=== PATIENT | male | born 1980 | race Caucasian/White ===

== ENCOUNTER 2016-09-18 13:07 | Emergency (ER) | payer OTHER ==
[~2016-09-18] VITALS: Ht 185.4 cm; Wt 95.2 kg
[~2016-09-18 13:07] MED LIST: BACO TOP; HIBICLENS118 ML TOP; SERO100 PO; SEROQUEL100 MG PO; SEROQUEL50 M1 PO; SIMVASTATIN10 M1 PO
[2016-09-18 14:25] VITALS: BP 135/74
== END 2016-09-18 14:25 | disposition home or self-care (01) ==
LOC: ED 13:07
DX: B34.9 Viral infection, unspecified (principal)
CPT/HCPCS: J1885; J7613; J7644

== ENCOUNTER 2016-09-25 15:45 | Emergency (ER) | payer OTHER ==
[2016-09-25 16:35] VITALS: BP 150/87
[2016-09-25 17:17] LABS: BASOPHIL % 0.5 % (0-2); PLATELET COUNT 275 x10^3mcL (130-400); RED CELL DISTRIBUTION WIDTH 13.6 % (11.5-14.5)
[2016-09-25 17:32] LABS: CALCIUM 9.2 mg/dL (8.5-10.1); CARBON DIOXIDE 24.1 mmol/L (21-32); CHLORIDE SERUM 98 mmol/L (98-107); CREATININE SERUM 0.9 mg/dL (0.7-1.3); GFR1 > 60 mL/min; GLUCOSE SERUM 81 mg/dL (74-106); POTASSIUM SERUM 3.4 mmol/L (3.5-5.1); SODIUM SERUM 136 mmol/L (136-145)
[2016-09-25 17:35] LABS: ALBUMIN 4.1 g/dL (3.4-5.0); ALKALINE PHOSPHATASE 96 U/L (46-116); ALT/SGPT 24 U/L (16-63); AST/SGOT 19 U/L (15-37); BILIRUBIN TOTAL 1.1 mg/dL (0.20-1.00); TOTAL PROTEIN, SERUM 7.9 g/dL (6.4-8.2)
== END 2016-09-25 18:10 | disposition home or self-care (01) ==
LOC: ED 15:45
PROVIDERS: Emergency Medicine
DX: F15.10 Other stimulant abuse, uncomplicated (principal)

== ENCOUNTER 2016-10-13 19:45 | Emergency (ER) | payer OTHER ==
[~2016-10-13] VITALS: Ht 185.4 cm; Wt 97.1 kg
[2016-10-13 21:21] VITALS: BP 135/75
== END 2016-10-13 21:21 | disposition home or self-care (01) ==
LOC: ED 19:45
DX: M54.5 Low back pain (principal); F15.10 Other stimulant abuse, uncomplicated

== ENCOUNTER 2016-11-10 11:52 | Emergency (ER) | payer OTHER ==
[2016-11-10 12:25] VITALS: BP 120/81
== END 2016-11-10 14:10 | disposition home or self-care (01) ==
LOC: ED 11:52
DX: J20.9 Acute bronchitis, unspecified (principal)

== ENCOUNTER 2017-11-11 07:17 | Emergency (ER) | payer OTHER ==
[~2017-11-11] VITALS: Ht 185.4 cm; Wt 88.0 kg
[2017-11-11 07:23] VITALS: BP 130/81; Ht 185.4 cm; Wt 88.0 kg
== END 2017-11-11 08:59 | disposition home or self-care (01) ==
LOC: ED 07:17
DX: S63.501A Unspecified sprain of right wrist, initial encounter (principal); X58.XXXA Exposure to other specified factors, initial encounter; Y93.89 Activity, other specified; Y92.89 Other specified places as the place of occurrence of the external cause; Y99.8 Other external cause status
CPT/HCPCS: A4570; Q0092

== ENCOUNTER 2017-11-30 08:36 | Inpatient (IN) | payer OTHER ==
[~2017-11-30] VITALS: Ht 172.7 cm; Wt 83.0 kg
[2017-11-30 08:45] VITALS: Ht 172.7 cm; Wt 83.0 kg
[2017-11-30 09:27] LABS: BASOPHIL % 0.4 % (0-2); PLATELET COUNT 291 x10^3mcL (130-400); RED CELL DISTRIBUTION WIDTH 13.6 % (11.5-14.5)
[2017-11-30 09:38] LABS: CALCIUM 8.9 mg/dL (8.5-10.1); CARBON DIOXIDE 22.6 mmol/L (21-32); CHLORIDE SERUM 100 mmol/L (98-107); CREATININE SERUM 1.1 mg/dL (0.7-1.3); GFR1 > 60 mL/min; GLUCOSE SERUM 85 mg/dL (74-106); POTASSIUM SERUM 3.6 mmol/L (3.5-5.1); SODIUM SERUM 140 mmol/L (136-145)
[2017-11-30 09:39] LABS: AMPHETAMINE QUAL UR NONE DETECTED (See below)
[2017-11-30 09:50] LABS: ALKALINE PHOSPHATASE 93 U/L (46-116); ALT/SGPT 28 U/L (16-63); AST/SGOT 25 U/L (15-37); BILIRUBIN TOTAL 1.1 mg/dL (0.20-1.00); FREE T4 1.14 ng/dL (0.76-1.46); TOTAL PROTEIN, SERUM 7.9 g/dL (6.4-8.2)
[2017-11-30 13:22] LABS: CARBON DIOXIDE 26.7 mmol/L (21-32); CHLORIDE SERUM 103 mmol/L (98-107); CREATININE SERUM 0.8 mg/dL (0.7-1.3); GFR1 > 60 mL/min; GLUCOSE SERUM 83 mg/dL (74-106); POTASSIUM SERUM 4.1 mmol/L (3.5-5.1); SODIUM SERUM 141 mmol/L (136-145)
[2017-11-30 13:24] LABS: UA SPECIFIC GRAVITY >=1.030 (1.005-1.035); microscopic required? YES; urine erythrocyte NEGATIVE (NEGATIVE)
[2017-11-30 15:20] LABS: MAGNESIUM 1.9 mg/dL (1.8-2.4); PHOSPHOROUS 4.1 mg/dL (2.5-4.9)
[2017-11-30 15:41] VITALS: BP 103/54
[2017-11-30 21:39] VITALS: BP 101/69
[2017-12-01 06:16] VITALS: BP 99/69
[2017-12-01 06:38] LABS: BASOPHIL % 0.8 % (0-2); PLATELET COUNT 229 x10^3mcL (130-400); RED CELL DISTRIBUTION WIDTH 14.1 % (11.5-14.5)
[2017-12-01 06:56] LABS: CALCIUM 7.8 mg/dL (8.5-10.1); CARBON DIOXIDE 25.9 mmol/L (21-32); CHLORIDE SERUM 107 mmol/L (98-107); CHOLESTEROL 162 mg/dL (<200); CHOLESTEROL/HDL RATIO 3.3; CREATININE SERUM 0.7 mg/dL (0.7-1.3); GFR1 > 60 mL/min; GLUCOSE SERUM 88 mg/dL (74-106); HDL CHOLESTEROL 49 mg/dL (40-60); MAGNESIUM 1.9 mg/dL (1.8-2.4); PHOSPHOROUS 3.7 mg/dL (2.5-4.9); SODIUM SERUM 142 mmol/L (136-145); TRIGLYCERIDES 46 mg/dL (<150)
[2017-12-01 09:39] VITALS: BP 104/65
[2017-12-01 13:18] VITALS: BP 116/76
[2017-12-01 21:18] VITALS: BP 113/73
[2017-12-02 05:18] VITALS: BP 117/73
[2017-12-02 06:13] LABS: BASOPHIL % 0.9 % (0-2); PLATELET COUNT 223 x10^3mcL (130-400); RED CELL DISTRIBUTION WIDTH 14.1 % (11.5-14.5)
[2017-12-02 06:25] LABS: CALCIUM 8.1 mg/dL (8.5-10.1); CARBON DIOXIDE 29.6 mmol/L (21-32); CHLORIDE SERUM 109 mmol/L (98-107); CREATININE SERUM 0.9 mg/dL (0.7-1.3); GFR1 > 60 mL/min; GLUCOSE SERUM 92 mg/dL (74-106); MAGNESIUM 1.9 mg/dL (1.8-2.4); PHOSPHOROUS 3.7 mg/dL (2.5-4.9); POTASSIUM SERUM 4.5 mmol/L (3.5-5.1); SODIUM SERUM 142 mmol/L (136-145)
[2017-12-02 07:53] VITALS: BP 113/74
[2017-12-02 17:47] VITALS: BP 110/60
[2017-12-02 21:55] VITALS: BP 105/68
[2017-12-03 05:40] VITALS: BP 106/64
[2017-12-03 06:47] LABS: BASOPHIL % 0.9 % (0-2); PLATELET COUNT 218 x10^3mcL (130-400); RED CELL DISTRIBUTION WIDTH 13.7 % (11.5-14.5)
[2017-12-03 07:02] LABS: CALCIUM 8.1 mg/dL (8.5-10.1); CARBON DIOXIDE 25.5 mmol/L (21-32); CHLORIDE SERUM 108 mmol/L (98-107); CREATININE SERUM 0.7 mg/dL (0.7-1.3); GFR1 > 60 mL/min; GLUCOSE SERUM 104 mg/dL (74-106); MAGNESIUM 1.8 mg/dL (1.8-2.4); PHOSPHOROUS 3.9 mg/dL (2.5-4.9); POTASSIUM SERUM 3.4 mmol/L (3.5-5.1); SODIUM SERUM 142 mmol/L (136-145)
[2017-12-03 10:09] VITALS: BP 106/63
[2017-12-03 17:40] VITALS: BP 117/74
[2017-12-03 21:14] VITALS: BP 105/62
[2017-12-04 06:00] VITALS: BP 97/54
[2017-12-04 06:24] LABS: BASOPHIL % 0.6 % (0-2); CALCIUM 8.3 mg/dL (8.5-10.1); CARBON DIOXIDE 25.4 mmol/L (21-32); CHLORIDE SERUM 108 mmol/L (98-107); CREATININE SERUM 0.8 mg/dL (0.7-1.3); GFR1 > 60 mL/min; GLUCOSE SERUM 89 mg/dL (74-106); PLATELET COUNT 214 x10^3mcL (130-400); POTASSIUM SERUM 3.8 mmol/L (3.5-5.1); RED CELL DISTRIBUTION WIDTH 14.2 % (11.5-14.5); SODIUM SERUM 142 mmol/L (136-145)
[2017-12-04 08:54] VITALS: BP 109/60
[2017-12-04 13:09] VITALS: BP 118/74
[2017-12-04 16:31] VITALS: BP 103/62
[2017-12-04 22:10] VITALS: BP 110/77
[2017-12-05 06:06] VITALS: BP 122/77
[2017-12-05 06:33] LABS: CALCIUM 8.3 mg/dL (8.5-10.1); CARBON DIOXIDE 25.6 mmol/L (21-32); CHLORIDE SERUM 108 mmol/L (98-107); CREATININE SERUM 0.7 mg/dL (0.7-1.3); GFR1 > 60 mL/min; GLUCOSE SERUM 90 mg/dL (74-106); POTASSIUM SERUM 3.8 mmol/L (3.5-5.1); SODIUM SERUM 142 mmol/L (136-145)
[2017-12-05 06:57] LABS: BASOPHIL % 0.9 % (0-2); PLATELET COUNT 206 x10^3mcL (130-400); RED CELL DISTRIBUTION WIDTH 13.8 % (11.5-14.5)
[2017-12-05 08:35] VITALS: BP 110/68
[2017-12-05 13:03] VITALS: BP 107/69
[2017-12-05] MEDS ORDERED: GEODON60 MG PO (15:56)
[2017-12-05 18:15] VITALS: BP 107/64
== END 2017-12-05 18:20 | DRG 463 ==
LOC: ED 08:36 → DU 14:09 → MU 14:09 → DU 15:33 → MU 12-01 14:35
PROVIDERS: Emergency Medicine; Family Medicine
DX: N39.0 Urinary tract infection, site not specified (principal); N17.0 Acute kidney failure with tubular necrosis; G93.41 Metabolic encephalopathy; F23 Brief psychotic disorder; E83.51 Hypocalcemia; F15.20 Other stimulant dependence, uncomplicated; F20.9 Schizophrenia, unspecified; F32.9 Major depressive disorder, single episode, unspecified; E66.3 Overweight; Z68.27 Body mass index [BMI] 27.0-27.9, adult; Z72.89 Other problems related to lifestyle
CPT/HCPCS: 83880; 84439; G0480; J0696; J1630; J2060; J7030; Q0092

== ENCOUNTER 2019-08-30 18:27 | Emergency (ER) | payer OTHER ==
[~2019-08-30] VITALS: Ht 182.9 cm; Wt 89.8 kg
[~2019-08-30 18:27] MED LIST changes: +GEODON60 MG PO
[2019-08-30 18:41] VITALS: Ht 182.9 cm; Wt 89.8 kg
[2019-08-30 21:12] LABS: BASOPHIL % 0.4 % (0-2); PLATELET COUNT 185 x10^3mcL (130-400); RED CELL DISTRIBUTION WIDTH 14.1 % (11.5-14.5)
[2019-08-30 21:26] LABS: C REACTIVE PROTEIN 0.6 mg/dL (<=0.9); CALCIUM 7.6 mg/dL (8.5-10.1); CARBON DIOXIDE 31.4 mmol/L (21-32); CHLORIDE SERUM 107 mmol/L (98-107); GFR1 > 60 mL/min; GLUCOSE SERUM 106 mg/dL (74-106); POTASSIUM SERUM 4.5 mmol/L (3.5-5.1); SODIUM SERUM 143 mmol/L (136-145)
[2019-08-30 22:33] VITALS: BP 142/80
== END 2019-08-30 22:33 | disposition home or self-care (01) ==
LOC: ED 18:27
PROVIDERS: Emergency Medicine
DX: M54.5 Low back pain (principal); F15.10 Other stimulant abuse, uncomplicated
CPT/HCPCS: 36415

== ENCOUNTER 2019-10-12 11:36 | Emergency (ER) | payer OTHER ==
[~2019-10-12] VITALS: Ht 185.4 cm; Wt 88.0 kg
[2019-10-12 11:50] VITALS: BP 129/84; Ht 185.4 cm; Wt 88.0 kg
== END 2019-10-12 13:52 | disposition home or self-care (01) ==
LOC: ED 11:36
DX: S90.852A Superficial foreign body, left foot, initial encounter (principal); M79.671 Pain in right foot; W22.8XXA Striking against or struck by other objects, initial encounter; Y93.89 Activity, other specified; Y92.89 Other specified places as the place of occurrence of the external cause; Y99.8 Other external cause status
CPT/HCPCS: 90715; J2001

== ENCOUNTER 2019-10-15 08:34 | Emergency (ER) | payer OTHER ==
[~2019-10-15] VITALS: Ht 185.4 cm; Wt 90.7 kg
[2019-10-15 08:43] VITALS: Ht 185.4 cm; Wt 90.7 kg
[2019-10-15 09:27] VITALS: BP 137/93
== END 2019-10-15 09:27 | disposition home or self-care (01) ==
LOC: ED 08:34
DX: M79.671 Pain in right foot (principal)

== ENCOUNTER 2019-10-30 16:35 | Emergency (ER) | payer OTHER ==
[~2019-10-30] VITALS: Ht 185.4 cm; Wt 91.6 kg
[2019-10-30 16:39] VITALS: Ht 185.4 cm; Wt 91.6 kg
[2019-10-30 17:10] VITALS: BP 135/88
== END 2019-10-30 17:10 | disposition home or self-care (01) ==
LOC: ED 16:35
DX: M79.671 Pain in right foot (principal)

== ENCOUNTER 2020-03-12 20:25 | Emergency (ER) | payer OTHER | END 2020-03-12 23:41 | disposition other institution (70) | LOC: ED 20:25 | DX: Z02.89 Encounter for other administrative examinations (principal) ==

== ENCOUNTER 2020-03-12 20:25 | Emergency (ER) | payer OTHER ==
[~2020-03-12] VITALS: Ht 185.4 cm; Wt 95.3 kg
[2020-03-12 20:32] VITALS: Ht 185.4 cm; Wt 95.3 kg
[2020-03-12 23:41] VITALS: BP 113/72
== END 2020-03-12 23:41 | disposition other institution (70) ==
LOC: ED 20:25
DX: F10.10 Alcohol abuse, uncomplicated (principal); R00.0 Tachycardia, unspecified; F15.10 Other stimulant abuse, uncomplicated

== ENCOUNTER 2020-05-13 21:40 | Emergency (ER) | payer OTHER ==
[~2020-05-13] VITALS: Ht 182.9 cm; Wt 87.1 kg
[2020-05-13 21:49] VITALS: Ht 182.9 cm; Wt 87.1 kg
[2020-05-13 22:33] LABS: BASOPHIL % 0.2 % (0-2); RED CELL DISTRIBUTION WIDTH 14.1 % (11.5-14.5)
[2020-05-13 22:34] LABS: PLATELET COUNT 412 x10^3mcL (130-400)
[2020-05-13 22:53] LABS: CARBON DIOXIDE 27.7 mmol/L (21-32); CHLORIDE SERUM 104 mmol/L (98-107); CREATININE SERUM 0.7 mg/dL (0.7-1.3); GFR1 > 60 mL/min; GLUCOSE SERUM 122 mg/dL (74-106); POTASSIUM SERUM 3.9 mmol/L (3.5-5.1); SODIUM SERUM 139 mmol/L (136-145)
[2020-05-13 22:57] LABS: ALKALINE PHOSPHATASE 128 U/L (46-116); ALT/SGPT 74 U/L (16-63); AST/SGOT 48 U/L (15-37); BILIRUBIN TOTAL 0.2 mg/dL (0.20-1.00); TOTAL PROTEIN, SERUM 7.3 g/dL (6.4-8.2)
[2020-05-13 23:03] LABS: ALBUMIN 2.9 g/dL (3.4-5.0)
[2020-05-13 23:25] LABS: microscopic required? NO
[2020-05-13 23:46] LABS: UA SPECIFIC GRAVITY 1.025 (1.005-1.035); urine erythrocyte NEGATIVE (NEGATIVE)
[2020-05-14 00:03] VITALS: BP 126/82
== END 2020-05-14 00:03 | disposition home or self-care (01) ==
LOC: ED 21:40
PROVIDERS: Student in an Organized Health Care Education/Training Program
DX: N45.1 Epididymitis (principal)
CPT/HCPCS: 87491; 87591; J0696; J1885